=== PATIENT | male | born 1970 | race Caucasian/White ===

== ENCOUNTER 2016-08-30 20:49 | Emergency (ER) | payer OTHER ==
[~2016-08-30] VITALS: Ht 185.4 cm; Wt 95.0 kg
[2016-08-30 23:07] VITALS: BP 159/92
== END 2016-08-30 23:10 | disposition home or self-care (01) ==
LOC: RME 20:49 → EME 20:49 → RME 23:10
DX: M87.859 Other osteonecrosis, unspecified femur (principal)
CPT/HCPCS: 99281; 99284

== ENCOUNTER 2016-09-01 01:36 | Emergency (ER) | payer OTHER | END 2016-09-01 01:50 | disposition left against medical advice (07) | LOC: EME 01:36 | DX: M25.559 Pain in unspecified hip (principal); Z53.21 Procedure and treatment not carried out due to patient leaving prior to being seen by health care provider ==